=== PATIENT | male | born 1960 | race Caucasian/White ===

== ENCOUNTER 2020-10-14 00:52 | Outpatient (CLI) | payer OTHER, SELFPAY ==
[2020-10-14 21:19] LABS: SARS-CoV-2 RNA PCR Negative
== END 2020-10-14 00:53 | disposition home or self-care (01) ==
LOC: ANHCOVIDDT 00:52
PROVIDERS: PCP Internal Medicine; Visit Provider Orthopaedic Surgery
DX: Z01.812 Encounter for preprocedural laboratory examination (principal); Z20.828 Contact with and (suspected) exposure to other viral communicable diseases
CPT/HCPCS: 87635; C9803; U0003

== ENCOUNTER 2020-10-14 07:29 | Outpatient (CLI) | payer OTHER, SELFPAY ==
--- NOTE | 2020-10-14 08:00 | ECG_ITS ---
Measurements Intervals [place] Rate: 57 P: -30 [place]: 160 QRS: -21 QRSD: 106 T: 8 QT: 424 QTc: 414 Interpretive Statements SINUS BRADYCARDIA DELAYED PRECORDIAL R/S TRANSITION INFERIOR INFARCT, AGE INDETERMINATE ABNORMAL ECG Electronically Signed On 10-14-2020 8:41:12 LADDER OPERATOR by Mark Sanders D.O.
[2020-10-14 08:12] LABS: Anion Gap 6 mmol/L (8-16); Blood Urea Nitrogen 17 mg/dL (9-20); Calcium 9.1 mg/dL (8.4-10.2); Carbon Dioxide 31 mmol/L (22-30); Chloride 103 mmol/L (98-107); Estimated Glomerular Filt Rate > 60; Glucose 126 mg/dL (75-110); Potassium 3.9 mmol/L (3.4-5.0); Sodium 140 mmol/L (137-145)
== END 2020-10-14 07:30 | disposition home or self-care (01) ==
LOC: ANHLAB 07:31
PROVIDERS: PCP Internal Medicine; Visit Provider Anesthesiology
DX: Z01.818 Encounter for other preprocedural examination (principal); Z51.81 Encounter for therapeutic drug level monitoring; Z79.899 Other long term (current) drug therapy; I25.2 Old myocardial infarction; I10 Essential (primary) hypertension; R00.1 Bradycardia, unspecified
CPT/HCPCS: 36415; 80048; 87635; 93005; C9803; U0003

== ENCOUNTER 2020-11-25 01:22 | Outpatient (CLI) | payer OTHER, SELFPAY ==
[2020-11-25 19:31] LABS: SARS-CoV-2 RNA PCR Negative
== END 2020-11-25 01:23 | disposition home or self-care (01) ==
LOC: ANHCOVIDDT 01:22
PROVIDERS: PCP Internal Medicine; Visit Provider Orthopaedic Surgery
DX: Z01.812 Encounter for preprocedural laboratory examination (principal); Z11.59 Encounter for screening for other viral diseases
CPT/HCPCS: 87635; C9803; U0003

== ENCOUNTER 2020-11-28 00:19 | Day surgery (SDC) | payer OTHER, SELFPAY ==
[2020-10-11 16:01] VITALS: BMI 35.6
--- NOTE | 2020-11-16 15:16 | PC.NURSE ---
1515 SPOKE WITH PT AND NOTHING HAS CHANGED WITH MEDICAL HX AND MEDICATIONS. PT AWARE OF COVID TEST DATE/TIME CHANGE.
--- NOTE | 2020-11-27 12:55 | WPDANESEPPF ---
Anes - Initial Pre Proc Eval Procedure: Operation Date: 11/28/20 12:30 Proposed Procedures p Left Knee Arthroscopy, Partial Medial Meniscectomy, Proceed As Indicated - Ricky Sanchez MD Date/Time: 11/27/20 12:55 Surgeon: Ricky Sanchez MD Pre Op Diagnosis: Primary OA & Meniscus Tear Left Knee Patient Data Age: 60 Gender: M Height: 1.7 m Weight: 103.42 kg Allergies Allergy/AdvReac Type Severity Reaction Status Date / Time No Known Allergies Allergy Verified 11/28/20 10:47 Home Medications Medication Instructions Recorded Confirmed Type amlodipine 5 mg tablet 5 mg PO DAILY 08/21/20 11/16/20 History aspirin 81 mg tablet,delayed 81 mg PO DAILY 08/21/20 11/16/20 History release meloxicam 15 mg tablet 15 mg PO DAILY 08/21/20 11/16/20 History omeprazole 40 mg capsule,delayed 40 mg PO DAILY 08/21/20 11/16/20 History release simvastatin 20 mg tablet 20 mg PO DAILY 08/21/20 11/16/20 History tramadol 50 mg tablet 50 mg PO Q6H PRN 08/21/20 11/16/20 History allopurinol 100 mg PO DAILY 10/11/20 11/16/20 History multivitamin 1 tablet PO DAILY 10/11/20 11/16/20 History olmesartan-hydrochlorothiazide 1 tablet PO DAILY 10/11/20 11/16/20 History Patient hx anesthesia problems: none Family hx anesthesia problems: none PMFSH Past Medical History Medical History (Updated 11/27/20 @ 12:56 by Mir Staley DO) DVT (deep venous thrombosis) Hyperlipidemia Hypertension MARISOL (obstructive sleep apnea) CPAP Surgical History Surgical History History of appendectomy (~2011) History of hernia surgery (~2012) History of shoulder surgery (~2004) Family History Family History Father Cancer Mother Lung cancer Other Heart disease Diabetes mellitus Social History Social History Smoking packs per day: 1 Smoking cigarettes per day: 20.0 Years smoked: 15 Smoking pack-years: 15.00 Smoking status: Former smoker Tobacco type: cigarettes Additional smoking assessment comments: QUIT AGE 34 Spiritual care concerns: No Anes - Eval Final PreProcedure Day of Procedure 11/27/20 12:55 Patient weight: obese Heart: regular rate and rhythm Lungs: clear to auscultation and normal air movement Airway: Mallampati scale class III Neurological: alert and oriented Last oral intake: >/= 8 hours ASA classification: III Emergent: no Anesthetic plan: proceed Anesthesia type and monitoring: general LMA and standard monitoring Informed Consent: The patient's anesthetic plan and its attendant risks and benefits were discussed with the patient/family/POA. Questions were solicited and answers provided to the satisfaction of the patient/family/POA.
[2020-11-28] VITALS (8 sets, daily range): BP systolic 112–144; BP diastolic 77–99; PULSE 49–69; RESP 11–20; TEMP 36.3–36.6; O2SAT 92–99
[2020-11-28] MEDS: ACETAMINOPHEN 500 MG TABLET 1000 MG PO (10:33)
--- NOTE | 2020-11-28 10:38 | WPDHPUPDATE1 ---
History and Physical Update Update Date/Time: 11/28/20 10:38 History and Physical has been reviewed, including an updated exam of the patient. There are NO changes in the patient's condition. Risks, benefits, and alternatives have been discussed and questions answered. Patient agrees to proceed with procedure.
[2020-11-28] MEDS: LACTATED RINGERS 1,000 ML 30 ML IV CONT (10:58)
[2020-11-28] MEDS: KETOROLAC 15 MG/ML VIAL (*BKC) IV PUSH (11:02)
[2020-11-28] MEDS: ceFAZolin 2 GM/D5W 50 ML 2 GM/50 ML BAG IVPB (12:47)
[2020-11-28] MEDS: BUPIVACAINE HCL 0.5% PF 30 ML VIAL INFILTRATE (13:06)
--- NOTE | 2020-11-28 13:36 | PM.PROC ---
Procedure Note - Detailed Date of procedure: 11/29/20 Medial meniscus tear. Post-op diagnosis: other (1. Complex degenerative medial meniscus tear 2. Degenerative arthritis) Procedure performed: Arthroscopic partial medial meniscectomy, with medial femoral and trochlea chondroplasty. [facility] Surgeon: Ricky Sanchez MD Window Draper: Yanet Dahl PA-C Estimated blood loss (mL): 10 Complications: None Condition: stable Disposition: same day Findings: Physician assistant to the director, Yanet Dahl PA-C, required for surgery; including patient positioning, draping, limb manipulation for exposure, wound closure, and dressing placement. Brief History: The patient complained of knee pain, swelling and mechanical symptoms despite conservative treatment. MRI confirmed the presence of a meniscus tear. Procedure Details: The patient was identified and the surgical site confirmed and signed in the preoperative holding area. Antibiotics were started per protocol. She was brought to the operative room and transferred to the OR table. A general anesthetic was administered. The knee was prepped and draped in the usual sterile fashion. A time-out was performed. The portal sites were marked and infiltrated with 0.5% Marcaine 20 mL. Standard inferolateral and inferomedial portals were established. Inflow was obtained with the saline pump. The camera was introduced. Diagnostic inspection of the joint was accomplished. The meniscus was debrided with the arthroscopic shaver and punches until stable. RF probe used as well. Chondroplasty of the medial condyle and trochlea with the shaver. The arthroscopic instruments were removed. The tourniquet released and wounds closed with subcutaneous 3-0 Monocryl absorbable suture. Steri strips and a sterile dressing were applied. A light elastic wrap was placed. The patient was extubated and brought to the recovery room in stable condition.
[2020-11-28] MEDS: oxyCODONE HCL (*CRX) 5 MG TAB IR PO (14:42)
== END 2020-11-28 15:45 | disposition home or self-care (01) ==
PROVIDERS: PCP Internal Medicine; Visit Provider Orthopaedic Surgery
PROC: (CPT 29870; principal; 2020-11-28 12:30)
DX: M23.332 Other meniscus derangements, other medial meniscus, left knee (principal); M17.12 Unilateral primary osteoarthritis, left knee; I10 Essential (primary) hypertension; E78.5 Hyperlipidemia, unspecified; G47.33 Obstructive sleep apnea (adult) (pediatric); Z86.718 Personal history of other venous thrombosis and embolism; Z79.82 Long term (current) use of aspirin; Z87.891 Personal history of nicotine dependence; E66.9 Obesity, unspecified; Z68.34 Body mass index [BMI] 34.0-34.9, adult
CPT/HCPCS: 29881; A9270; C9290; C9803; J0690; J1885; J2250; J3010; J7120; U0003

== ENCOUNTER 2021-08-11 09:01 | Emergency (ER) | payer OTHER, SELFPAY ==
[2021-08-11 09:08] VITALS: BP 122/68; PULSE 62; RESP 20; TEMP 36.3; O2SAT 98
--- NOTE | 2021-08-11 09:40 | ED.URI ---
HPI - URI/Sore Throat General Chief Complaint: Upper Respiratory Infection Stated Complaint: sore throat Source: patient Mode of arrival: ambulatory Limitations: no limitations History of Present Illness HPI Narrative: Patient is a 60-year-old male who presents complaining of sore throat x4 days. He reports mild cough. Denies chest pain or shortness of breath. He denies fever, rhinorrhea or congestion patient has been vaccinated with [employer] vaccine. He denies known exposure to Covid. He denies all other complaints at this time. He denies taking [id number] medications at this time. Patient reports a history of GERD. MD elicited complaint: sore throat Related Data Home Medications Medication Instructions Recorded Confirmed amlodipine 5 mg tablet 5 mg PO DAILY 08/21/20 12/13/20 aspirin 81 mg tablet,delayed 81 mg PO DAILY 08/21/20 12/13/20 release omeprazole 40 mg capsule,delayed 40 mg PO DAILY 08/21/20 12/13/20 release simvastatin 20 mg tablet 20 mg PO DAILY 08/21/20 12/13/20 allopurinol 100 mg PO DAILY 10/11/20 12/13/20 multivitamin 1 tablet PO DAILY 10/11/20 12/13/20 olmesartan-hydrochlorothiazide 1 tablet PO DAILY 10/11/20 12/13/20 Allergies Allergy/AdvReac Type Severity Reaction Status Date / Time No Known Allergies Allergy Verified 11/28/20 10:47 Review of Systems Review of Systems: CONSTITUTIONAL: Denies fever, chills, or sweats. EYES: Denies visual changes, redness, or discharge. ENT: Reports sore throat CARDIOVASCULAR: Denies chest pain, palpitations, or edema. RESPIRATORY: Denies cough or dyspnea. GASTROINTESTINAL: Denies abdominal pain, nausea, vomiting, or diarrhea. GENITOURINARY: Denies dysuria or hematuria. SKIN: Denies rash or itching. MUSCULOSKELETAL: Denies back pain, joint pain, or myalgia. NEUROLOGIC: Denies headache, numbness, dizziness, or weakness. PSYCHIATRIC: Denies anxiety or depression. [facility] Past Medical History Medical History (Updated 08/11/21 @ 09:50 by STEVEN Agrawal) DVT (deep venous thrombosis) GERD (gastroesophageal reflux disease) Hyperlipidemia Hypertension MARISOL (obstructive sleep apnea) CPAP Surgical History Surgical History History of appendectomy (~2011) History of hernia surgery (~2012) History of shoulder surgery (~2004) Status post arthroscopic partial medial meniscectomy (~11/28/20) Lt knee Family History Family History Father Cancer Mother Lung cancer Other Heart disease Diabetes mellitus Social History Social History Smoking packs per day: 1 Smoking cigarettes per day: 20.0 Years smoked: 15 Smoking pack-years: 15.00 Smoking status: Former smoker Tobacco type: cigarettes Additional smoking assessment comments: QUIT AGE 34 Spiritual care concerns: No Comments At the time of signature, I have reviewed and agree with nursing past medical, surgical, social, and family history unless otherwise noted. Please see nursing chart for further information. There is no relevant family history pertinent to the presenting complaint. Exam Narrative: GENERAL: Well-appearing, well-nourished, and in no acute distress. HEAD: Normocephalic, atraumatic. EYES: EOMI. No redness or drainage. Conjunctiva are normal. ENT: Mucous membranes pink and moist. Nares clear. No rhinorrhea. Throat with mild erythema. Uvula midline. NECK: AROM. Supple. No lymphadenopathy. CHEST: No respiratory distress. HEART: Regular rate and rhythm. EXTREMITIES: Normal range of motion. No edema. SKIN: Warm, dry, no rash. NEURO: No focal deficits. Alert and oriented x3. Gait steady. PSYCH: Normal affect. No signs of depression or anxiety. Course Vital Signs Vital signs: Vital Signs Temperature 36.3 C L 08/11/21 09:08 Pulse Rate 62 08/11/21 09:08 Respirator
[2021-08-13 18:39] LABS: SARS-CoV-2 RNA PCR Negative
== END 2021-08-11 10:02 | disposition home or self-care (01) ==
PROVIDERS: Emergency Provider Nurse Practitioner; PCP Internal Medicine
DX: J06.9 Acute upper respiratory infection, unspecified (principal); Z86.718 Personal history of other venous thrombosis and embolism; K21.9 Gastro-esophageal reflux disease without esophagitis; E78.5 Hyperlipidemia, unspecified; I10 Essential (primary) hypertension; G47.33 Obstructive sleep apnea (adult) (pediatric); Z87.891 Personal history of nicotine dependence; Z79.82 Long term (current) use of aspirin
CPT/HCPCS: 87081; 87426; 87880; 99213; C9803; G0463; U0003; U0005